=== PATIENT | female | born 1990 | race Caucasian/White ===

== ENCOUNTER 2017-04-05 16:11 | Inpatient (IN) | payer BC ==
[~2017-04-05] VITALS: Ht 170.2 cm; Wt 99.1 kg
[~2017-04-05 16:11] MED LIST: IRON325 M1 PO; PRENATAL1 TA1 PO
[2017-05-10 22:22] VITALS: BP 115/60; PULSE 65; TEMP 98
[2017-05-10 22:30] VITALS: BP 115/60; PULSE 65; TEMP 98
[2017-05-10 23:00] VITALS: BP 114/62; PULSE 67
[2017-05-10 23:30] VITALS: BP 99/55; PULSE 59
[2017-05-11] VITALS (37 sets, daily range): BP systolic 97–155; BP diastolic 55–71; PULSE 52–111; TEMP 97.7–98.2
[2017-05-11 00:38] LABS: BASO % 0.2 % (0.0-2.0); EOS # 0.1 (0.0-0.7); EOS % 0.9 % (0-4.0); GRAN # 11.8 (1.4-6.5); GRAN % 73.4 % (42.2-75.2); LYMPH # 2.4 (1.2-3.4); LYMPH % 15.1 % (20.0-51.0); MEAN CELL VOLUME 88 fl (80.0-100.0); MEAN CORPUSCULAR HGB CONC 33 g/dl (33.0-37.0); MONO # 1.5 (0.1-0.6); MONO % 9.4 % (1.7-9.3); PLATELET COUNT 230 K/mm3 (130-400); RED BLOOD COUNT 3.82 M/mm3 (4.10-5.30); REDCELL DISTRIBUTION WIDTH-CV 13.3 % (11.5-14.5)
[2017-05-11 00:40] LABS: HEMATOCRIT 33.6 % (37.0-47.0); HEMOGLOBIN 11.2 g/dl (12.5-16.0); MEAN CORPUSCULAR HEMOGLOBIN 29 pg (27.0-31.0)
[2017-05-12 00:50] VITALS: BP 108/54; PULSE 100; TEMP 98.1
[2017-05-12 09:17] VITALS: BP 115/56; PULSE 90; TEMP 98.1
[2017-05-12] MEDS ORDERED: IBU600 MG PO (11:00)
[2017-05-12] MEDS ORDERED: PERCOCET 325 MG1 TA2 PO (11:00)
== END 2017-05-12 15:00 | disposition home or self-care (01) | DRG 775 ==
LOC: LDR 05-10 10:31 → OB 05-10 21:55 → LDR 05-11 07:13 → OB 05-11 14:30 → EDSTATUS 05-15 06:56 → LDRO 05-15 16:10
PROVIDERS: Obstetrics & Gynecology
PROC: 10E0XZZ Delivery of Products of Conception, External Approach (ICD-10-PCS; principal; 2017-05-11)
DX: O70.0 First degree perineal laceration during delivery (principal); Z3A.39 39 weeks gestation of pregnancy; Z37.0 Single live birth
CPT/HCPCS: J2590; J2795; J7120

== ENCOUNTER 2021-12-27 21:01 | Emergency (ER) | payer OTHER ==
[~2021-12-27] VITALS: Ht 167.6 cm; Wt 86.4 kg
[~2021-12-27 21:01] MED LIST changes: +IBU600 MG PO; +PERCOCET 325 MG1 TA2 PO
[2021-12-27 21:09] VITALS: TEMP 97.7
[2021-12-27 22:04] VITALS: BP 111/73; PULSE 72
== END 2021-12-27 22:10 | disposition home or self-care (01) ==
LOC: COL.ER 21:01
DX: S61.211A Laceration without foreign body of left index finger without damage to nail, initial encounter (principal); W26.0XXA Contact with knife, initial encounter